=== PATIENT | female | born 1975 | race Caucasian/White ===

== ENCOUNTER 2018-11-30 12:28 | Emergency (ER) | payer BC, SELFPAY ==
[2018-11-30 13:06] VITALS: BP 160/90; RESP 18; TEMP 36.9; O2SAT 100
--- NOTE | 2018-11-30 13:26 | W.ED.GENAD ---
Discharge Plan Disposition Patient Disposition: HOME Condition: Stable Discharge Details Chief Complaint: RespSymp Clinical Impression: Sinusitis Reason For Visit: ? sinus infection Primary Care Provider: Nazanin Mitchell ED Provider: Lisandro Joseph Home Meds and New Rx's Prescriptions: New doxycycline hyclate 100 mg capsule 100 mg PO BID Qty: 14 RF: 0 Continued ibuprofen 200 mg Capsule RF: 0 levothyroxine 125 mcg Tablet 125 mcg PO DAILY RF: 0 Discharge Instructions Instructions: Sinusitis (ED) Additional Instructions: Continue to use vjgp-uzh-[id number] ibuprofen along with cold and sinus medication. You may delay start of your antibiotic for the next 24-48 hours to see if your symptoms improve with symptomatic bbkd-xdk-jnanszt treatment otherwise when she start the antibiotic you should take the medication until fully complete. Return emergency department as needed for any concerns or follow-up with your primary care provider for reassessment. Referrals: Primary Care Provider [Outside] (As needed for reassessment or if not improving) Discharge Data Discharge Date/Time-TO BE ENTERED AT DEPARTURE: 11/30/18 13:38 Medical Decision Making Patient presenting to the emergency department chief complaint of sinus pressure. Patient states typical URI symptoms for 1 week but significant increase in sinus pain and pressure over the last 24 hours. She states some associated dental pain and pain does change with position. Patient denies any febrile symptoms states dry cough. Physical exam is positive for ethmoid and maxillary sinus tenderness that is mild otherwise clear lung sounds and unremarkable remainder of H ENT exam. Patient is nontoxic in appearance. Given that patient is nearing the 10-day point of illness with worsening symptoms there is concern for this being possibly bacterial. Patient placed on doxycycline twice daily for 1 week but she was informed that she does not need to begin this immediately that she may await an additional 24 hours before starting the medication to see if she improves with just using alip-blz-jjnmctt ibuprofen. Patient denies any chance of and at this time states that she does not need to take a urine test as no chance of . Patient informed that doxycycline and a ibuprofen may be harmful to possible which she states clear understanding of that. Patient follow-up with primary care provider as needed. HPI General Mode of arrival: ambulatory. Date/Time Provider Initiated Documentation: 11/30/18 13:19. Limitations to Documentation: no limitations. Information obtained by: patient and RN notes reviewed. History of Present Illness 43 year old F presents to the emergency department with the chief complaint of sinus pressure, described as moderate, with intensity rated at 6. Quality is described as aching, and is localized to the face. Patient started experiencing this week(s) (1) and it has been constant. No relieving factors improve symptom(s), No exacerbating factors reported . Patient did receive the following treatments prior to arrival, none Related Data Home Medications Medication Instructions Recorded Confirmed doxycycline hyclate 100 mg PO BID #14 cap 11/30/18 ibuprofen 11/30/18 levothyroxine 125 mcg PO DAILY 11/30/18 11/30/18 Previous Rx's Medication Instructions Recorded doxycycline hyclate 100 mg PO BID #14 cap 11/30/18 Allergies Allergy/AdvReac Type Severity Reaction Status Date / Time ampicillin Allergy Unverified 11/30/18 13:11 sulfamethoxazole Allergy Unverified 11/30/18 13:11 [From ] trimethoprim [From ] Allergy Unverified 11/30/18 13:11 General Stated Complaint: RespSymp RAJ: 4 Review of Systems Constitutional Denies body ache(s), Denies chills, Denies fever(s), Reports headache(s) and Denies malaise Eyes Denies eye discharge ENT Reports as per HPI, Denies ear discharge, Denies otalgia, Reports headache(s), Reports nasal congestion, Reports nasal discharge, Denies neck pain, Reports sinus pain, Reports sinus pressure, Reports sore throat and Denies throat swelling Cardiovascular Denies chest pain and Denies dyspnea Respiratory Reports cough and Denies dyspnea Musculoskeletal Denies joint swelling and Denies neck pain Integumentary/Breasts Denies rash Neurologic Reports headache(s) Allergic/Immunologic Denies throat swelling [facility] Medical History Hypothyroid (Chronic) Social History Smoking and Tabacco status: Never Exam Const General: cooperative, comfortable and no acute distress Orientation: alert and awake [facility] Head: normal to inspection, normocephalic and atraumatic Ears: hearing grossly normal bilaterally and TM's normal bilaterally General nose exam: external nose normal Face and sinus: no erythema and sinus tenderness ethmoid and maxillary Mouth: oral mucosae normal, no drooling, no muffled voice and no trismus Throat: posterior oropharynx normal, tonsils normal and uvula midline Neck Neck: normal visual inspection, full ROM, no lymphadenopathy, no meningeal signs, trachea midline and supple Resp Effort & Inspection: normal respiratory effort, able to speak in complete sentences and cough Quality of cough: dry Auscultation: clear to auscultation bilaterally Cardio Rate: regular rate Rhythm: regular rhythm Heart Sounds: S1 normal, S2 normal, normal S1 and S2, no click, no gallops, no murmurs and no rubs Skin General skin exam: no rashes or lesions noted and dry skin (warm) Neuro General: alert, awake, oriented x3, gait normal and moves all extremities Cognition: normal cognition Speech: speech normal Course Vital Signs Temperature 36.9 C 11/30/18 13:06 Respiratory Rate 18 11/30/18 13:06 Blood Pressure 160/90 H 11/30/18 13:06 Pulse Oximetry 100 11/30/18 13:06 Temperature 36.9 C 11/30/18 13:06 Temperature Source Tympanic 11/30/18 13:06 Respiratory Rate 18 11/30/18 13:06 Respiratory Effort Non-Labored 11/30/18 13:15 Respiratory Depth Normal 11/30/18 13:15 Blood Pressure 160/90 H 11/30/18 13:06 Blood Pressure Position Sitting 11/30/18 13:06 Pulse Oximetry 100 11/30/18 13:06 Oxygen Delivery Method Room Air 11/30/18 13:06 Oxygen Flow Rate 0 11/30/18 13:06 Pain Level 6 11/30/18 13:06
--- NOTE | 2018-11-30 13:33 | ED.GENADUL_ITS ---
Discharge Plan Disposition Patient Disposition: HOME Condition: Stable Discharge Details Chief Complaint: RespSymp Clinical Impression: Sinusitis Reason For Visit: ? sinus infection Primary Care Provider: Nazanin Mitchell ED Provider: Lisandro Joseph Home Meds and New Rx's Prescriptions: New doxycycline hyclate 100 mg capsule 100 mg PO BID Qty: 14 RF: 0 Continued ibuprofen 200 mg Capsule RF: 0 levothyroxine 125 mcg Tablet 125 mcg PO DAILY RF: 0 Discharge Instructions Instructions: Sinusitis (ED) Additional Instructions: Continue to use ufjz-lec-rbzekwk ibuprofen along with cold and sinus medication. You may delay start of your antibiotic for the next 24-48 hours to see if your symptoms improve with symptomatic [id number]-[id number] treatment otherwise when she start the antibiotic you should take the medication until fully complete. Return emergency department as needed for any concerns or follow-up with your primary care provider for reassessment. Referrals: Primary Care Provider [Outside] (As needed for reassessment or if not improving) Discharge Data Discharge Date/Time-TO BE ENTERED AT DEPARTURE: 11/30/18 13:38 Medical Decision Making Patient presenting to the emergency department chief complaint of sinus pressure. Patient states typical URI symptoms for 1 week but significant increase in sinus pain and pressure over the last 24 hours. She states some associated dental pain and pain does change with position. Patient denies any febrile symptoms states dry cough. Physical exam is positive for ethmoid and maxillary sinus tenderness that is mild otherwise clear lung sounds and unremarkable remainder of H ENT exam. Patient is nontoxic in appearance. Given that patient is nearing the 10-day point of illness with worsening symptoms there is concern for this being possibly bacterial. Patient placed on doxycycline twice daily for 1 week but she was informed that she does not need to begin this immediately that she may await an additional 24 hours before start ing the medication to see if she improves with just using lreb-hbd-cnobygj ibuprofen. Patient denies any chance of and at this time states that she does not need to take a urine test as no chance of . Patient informed that doxycycline and a ibuprofen may be harmful to possible which she states clear understanding of that. Patient follow-up with primary care provider as needed. HPI General Mode of arrival: ambulatory . Date/Time Provider Initiated Documentation: 11/30/18 13:19 . Limitations to Documentation: no limitations . Information obtained by: patient and RN notes reviewed . History of Present Illness 43 year old F presents to the emergency department with the chief complaint of sinus pressure, described as moderate, with intensity rated at 6. Quality is described as aching, and is localized to the face. Patient started experiencing this week(s) (1) and it has been constant. No relieving factors improve symptom(s), No exacerbating factors reported . Patient did receive the following treatments prior to arrival, none Related Data Home Medications Medication Instructions Recorded Confirmed doxycycline hyclate 100 mg PO BID #14 cap 11/30/18 ibuprofen 11/30/18 levothyroxine 125 mcg PO DAILY 11/30/18 11/30/18 Previous Rx's Medication Instructions Recorded doxycycline hyclate 100 mg PO BID #14 cap 11/30/18 Allergies Allergy/AdvReac Type Severity Reaction Status Date / Time ampicillin Allergy Unverified 11/30/18 13:11 sulfamethoxazole Allergy Unverified 11/30/18 13:11 [From ] trimethoprim [From ] Allergy Unverified 11/30/18 13:11 General Stated Complaint: RespSymp RAJ: 4 Review of Systems Constitutional Denies body ache(s), Denies chills, Denies fever(s), Reports headache(s) and Denies malaise Eyes Denies eye discharge ENT Reports as per HPI, Denies ear discharge, Denies otalgia, Reports headache(s), Reports nasal congestion, Reports nasal discharge, Denies neck pain, Reports sinus pain, Reports sinus pressure, Reports sore throat and Denies throat swelling Cardiovascular Denies chest pain and Denies dyspnea Respiratory Reports cough and Denies dyspnea Musculoskeletal Denies joint swelling and Denies neck pain Integumentary/Breasts Denies rash Neurologic Reports headache(s) Allergic/Immunologic Denies throat swelling [facility] Medical History Hypothyroid (Chronic) Social History Smoking and Tabacco status: Never Exam Const General: cooperative, comfortable and no acute distress Orientation: alert and awake [facility] Head: normal to inspection, normocephalic and atraumatic Ears: hearing grossly normal bilaterally and TM's normal bilaterally General nose exam: external nose normal Face and sinus: no erythema and sinus tenderness ethmoid and maxillary Mouth: oral mucosae normal, no drooling, no muffled voice and no trismus Throat: posterior oropharynx normal, tonsils normal and uvula midline Neck Neck: normal visual inspection, full ROM, no lymphadenopathy, no meningeal signs, trachea midline and supple Resp Effort & Inspection: normal respiratory effort, able to speak in complete sentences and cough Quality of cough: dry Auscultation: clear to auscultation bilaterally Cardio Rate: regular rate Rhythm: regular rhythm Heart Sounds: S1 normal, S2 normal, normal S1 and S2, no click, no gallops, no murmurs and no rubs Skin General skin exam: no rashes or lesions noted and dry skin (warm) Neuro General: alert, awake, oriented x3, gait normal and moves all extremities Cognition: normal cognition Speech: speech normal Course Vital Signs Temperature 36.9 C 11/30/18 13:06 Respiratory Rate 18 11/30/18 13:06 Blood Pressure 160/90 H 11/30/18 13:06 Pulse Oximetry 100 11/30/18 13:06 Temperature 36.9 C 11/30/18 13:06 Temperature Source Tympanic 11/30/18 13:06 Respiratory Rate 18 11/30/18 13:06 Respiratory Effort Non-Labored 11/30/18 13:15 Respiratory Depth Normal 11/30/18 13:15 Blood Pressure 160/90 H 11/30/18 13:06 Blood Pressure Position Sitting 11/30/18 13:06 Pulse Oximetry 100 11/30/18 13:06 Oxygen Delivery Method Room Air 11/30/18 13:06 Oxygen Flow Rate 0 11/30/18 13:06 Pain Level 6 11/30/18 13:06
== END 2018-11-30 13:38 | disposition home or self-care (01) ==
PROVIDERS: Emergency Provider Nurse Practitioner Family; PCP Internal Medicine
DX: J01.90 Acute sinusitis, unspecified (principal)
CPT/HCPCS: 99282

== ENCOUNTER 2023-05-09 15:18 | Outpatient (REF) | payer BC, SELFPAY ==
[2023-05-09 21:48] LABS: BUN 12 mg/dL (7-18); CREATININE 0.9 mg/dL (0.55-1.02); Calcium 9.2 mg/dL (8.5-10.1); Chloride 101 mmol/L (98-107); Estimated GFR 79.35 (mL/min/1.73m2); Glucose 124 mg/dL (74-106); Sodium 136 mmol/L (136-145)
== END 2023-05-09 15:19 | disposition home or self-care (01) ==
LOC: NCHCN 15:18
PROVIDERS: PCP Internal Medicine; Visit Provider Family Medicine
DX: I10 Essential (primary) hypertension (principal)
CPT/HCPCS: 80048

== ENCOUNTER 2023-09-15 12:49 | Outpatient (REF) | payer BC, SELFPAY ==
--- NOTE | 2023-09-15 08:50 | SKI_PTH ---
PATIENT: Hue Wood LOC: [facility] U#:[id number] AGE/SX: 48/F ROOM: RE09/15/[address]: Lelo Saenz : 1975 BED: DIS: 09/15/2023 SPEC #: [id number] RECD: 09/15/23 18:01 STATUS: CHET SMITH #: [id number] TEDDY: 09/15/23 08:[address]: Lelo Saenz DEPT: Surgical Specimen RECD BY: Paz Rodriguez ENTERED: 09/15/23 18:02 SP TYPE: PORTER HURTADO DR: Nazanin Mitchell Tissues: 1 - SKIN BIOPSY(SHAVE/PUNCH) Procedures: SKIN LEVEL 4 Comments: [id number]
--- OUTSIDE RECORDS SUMMARY | 2023-09-15 12:52 | XMS_ITS | Continuity of Care Document ---
Author Name Unknown Organization [facility] Ambulatory Clinics Address [address] [place] [address] Care Team Providers Care Press Tender Long Goods Name Role Phone Unavailable, Physician Primary Care Physician Un available Encounter [facility] NBR [id number] Date(s): 01/24/23 - 01/24/23 [facility] Ambulatory Clinics [address] [place] [address]- [place] Discharge Disposition: Home Allergies, Adverse Reactions, Alerts Substance Reaction Severity Status ampicillin Hives Moderate Active Septra Hives Moderate Active Assessment and Plan Future Appointments Medications levothyroxine 125 mcg (0.125 mg) oral tablet 125 mcg = 1 tab, Oral, Daily, # 90 tab, 0 Refill(s) Start Date: 01/07/23 Status: Ordered Mirena 52 mg intrauteral device 52 mg 1 EA, Intrauteral, Once, 0 Refill(s) Start Date: 01/07/23 Status: Ordered Problem List Condition Confirmation Course Effective Dates Status Health St atus Informant Anxiety Confirmed Active HTN (hypertension) Confirmed Active Hypothyroid Confirmed Active IUD (intrauterine device) in place Confirmed Active Psoriasis Confirmed Active Procedures Procedure Date Related Diagnosis Body Site Status Breast reduction 12/2016 Complete d Social History Social History Type Response Smoking Status Smoking tobacco use: Never tobacco user;Never entered on: 01/07/23 Sex Patient Care team information Care Team Personnel Name: Unavailable, Physician Position: No Access Member Role: Primary Care Physician Care Team Related Persons Name: BESSY DIAZ Address: Home [address], [place] [id number] Address: [address], [place] [id number] Name: KAYLEE KIM Address: Home [address], [place] [id number] [facility]
--- OUTSIDE RECORDS SUMMARY | 2023-09-15 12:52 | XMS_ITS | Continuity of Care Document ---
Author Name Unknown Organization [facility] Ambulatory Clinics Address [address] [place] [address] Care Team Providers Care Heavy Equipment Operator/Paver Name Role Phone Unavailable, Physician Primary Care Physician Un available Encounter [facility] NBR [id number] Date(s): 01/09/23 - 01/09/23 [facility] Ambulatory Clinics [address] [place] [address] [place] Encounter Diagnosis Encounter for gynecological examination without abnormal finding(Discharge Diagnosis) - 01/09/23 IUD (intrauterine device) in place(Discharge Diagnosis) - 01/09/23 HTN (hypertension)(Discharge Diagnosis) - 01/09/23 Encounter for screening mammogram for malignant neoplasm of breast(Discharge Diagnosis) - 01/09/23 Hypothyroid(Discharge Diagnosis) - 01/09/23 Discharge Disposition: Home or Self Care Attending Physician: Danny Barrios Allergies, Adverse Reactions, Alerts Substance Reaction Severity Status ampicillin Hives Moderate Active Septra Hives Moderate Active Assessment and Plan Future Appointments Future Scheduled Tests Laboratory* CBC w/ Diff 01/09/23 * Comprehensive Metabolic Panel 01/09/23 * Lipid Panel 01/09/23 * TSH w/ Rflx to Free T4 01/09/23 Radiology* MG Mammo Screening Bilateral 01/24/23 Functional Status 01/09/23 Other exposure to Infectious Disease Non e Medications levothyroxine 125 mcg (0.125 mg) oral [...] Site Status Breast reduction 12/2016 Complete d Vital Signs Most recent to oldest [Reference Range]: 1 Blood Pressure [90-140/60-90 mmHg] 174/1 12mmHg *HI* (01/09/23 8:43 AM) Weight 66.7 kg (01/09/23 8:43 AM) Weight Measured (lbs) 147.048 lb (01/09/23 8:43 AM) [place] Body Weight Calculated 50.1 kg (01/09/23 8:43 AM) Height 157.48 cm (01/09/23 8:43 AM) Height/Length Measured (inches) 62 inch (01/09/23 8:43 AM) BSA Measured 1.71 m2 (01/09/23 8:43 AM) Body Mass Index 26.9 kg/m2 (01/09/23 8:43 AM) Social History Social History Type Response Smoking Status Smoking tobacco use: Never tobacco user;Never entered on: 01/07/23 Sex Physician Outpatient Note * Danny Barrios P: PERFORM Event Display: Office Clinic Note Physician Authored Date: [id number] GREGORY DIAZ :1975 Age:47 years Sex:Female Visit Date:01/09/2023 Primary Care Physician: Unavailable, Physician 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 ??She has a Mirena IUD that was??replaced on 01/01/2021.?? There have??not been any problems with bleeding, only occasional intermittent spotting. ??There are no problems with urination and bowel movements. ??She is concerned about her blood pressure. ??It has been elevated??at her appointments here??in the last 2 years. ??She??has not??found a primary care provider.?Her last Pap smear on 10/31/2020 was Cytology Negative and Negative for High Risk HPV DNA. ??Her last mammogram??on 12/27/2020??showed No??Mammographic Evidence of Malignancy, benign findings, BI-RADS Category 2. Review of Systems Constitutional: No fevers, chills, sweats, no weight loss, no weight gain Eye: No new visual problems Respiratory: No shortness of breath, cough Breasts: No new lumps, skin changes, nipple discharge Cardiovascular: No chest pain, palpitations, syncope Gastrointestinal: No nausea, vomiting, diarrhea Genitourinary: No blood in urine, no urinary urgency, frequency, leakage, no painful urination, no difficulty urinating Flight Crew Time Clerk: Intermittent light vaginal spotting. ??No??odor, discharge, no vulvar itching, pain, dryness, no pain with menses or intercourse, no pelvic pain Heme/Lymph: Negative for bruising tendency, swollen lymph glands Endocrine: Negative for cold intolerance, new unexpected hair growth Skin: No bruises, abrasions Psychiatric: No anxiety, depression Physical Exam Vitals & Measurements BP:??174/112?? HT:??157.48??cm?? WT:??66.7??kg?? BMI:??26.9?? BSA:??1.71?? General: Alert and oriented, well nourished, no acute distress Eye: Pupils equal, EOMI HEENT: Normocephalic, grossly normal hearing, moist oral mucosa, no scleral icterus Neck: Supple, no thyroid enlargement, no lymphadenopathy Lungs: Clear to auscultation, non-labored respiration Heart: Normal rate, regular rhythm, no murmurs Breasts: Symmetrical, no masses, no skin discoloration, no abnormal nipple discharge, no palpable lymphadenopathy Abdomen: Soft, non-tender, non-distended, normal bowel sounds, no masses Musculoskeletal: Grossly normal range of motion and strength, no tenderness or swelling Skin: Skin is warm, dry, no rashes Neurologic: Awake, alert, and oriented X4, CN II-XII grossly intact Psychiatric: Cooperative, appropriate mood and affect ?? Vulva: Normal external female genitalia, no masses, no atrophy, [place]???s and [place]???s glands normal Bladder: Urethra normal, no bladder prolapse Vagina: Normal pink rugated mucosa, normal vaginal discharge, adequate pelvic support Cervix: Normal appearance, no lesions or lacerations Uterus: Normal size, shape, non tender, mobile, no prolapse Adnexa: No masses or tenderness Perineum/Anus: No skin changes or hemorrhoids Assessment/Plan 1.??Encounter for gynecological examination without abnormal finding??Z01.419 ?? 2.??IUD (intrauterine device) in place??Z97.5 ?? 3.??HTN (hypertension)??I10 Ordered: CBC w/ Diff, Blood, Routine, 01/09/23, Once, Lab Collect, HTN (hypertension), Order for future visit Comprehensive Metabolic Panel, Blood, Routine, 01/09/23, Once, Lab Collect, HTN (hypertension), Order for future visit Lipid Panel, Blood, Routine, 01/09/23, Once, Lab Collect, HTN (hypertension), Order for future visit ?? 4.??Hypothyroid??E03.9 Ordered: TSH w/ Rflx to Free T4, Blood, Routine, 01/09/23, Once, Lab Collect, Hypothyroid, Order for future visit ?? 5.??Encounter for screening mammogram for malignant neoplasm of breast??Z12.31 Ordered: MG Mammo Screening Bilateral, 01/09/23, Routine, Reason: breast cancer screening, Transport Mode: Ambulatory, Encounter for screening mammogram for malignant neoplasm of breast ?? Today, at the time of your Well Woman visit, we discussed many different topics in hopes of helpingyou maintain your group home health. We discussed screening tests that are appropriate for you. Thesetests are ordered depending on your age, medical and gynecologic histories, and risk factors. In order for you to maintain your group home health, you'll also need to get routine exercise. Current datareflect that you can do 35 minutes of mild exercise 5 days per week or 25 minutes of vigorous exercise 5 days per week and maintain your group home health. I would also recommend that you make sure youare getting enough vitamin D. Most women in the [place] are low on vitamin D. I would recommend that you supplement daily with vitamin D, and that you take 1000 - 1500 Int Units daily.?We??discussed??Hypertension??evaluation, management,??and??need for establishing??care with a primary care provider.?? Initial lab testing was ordered. ??Our office??is assisting her in finding??a primary c are??provider??and establishing an??initial appointment. Future Orders CBC w/ Diff, Blood, Routine, 01/09/23, Once, Lab Collect, HTN (hypertension), Order for future visit Comprehensive Metabolic Panel, Blood, Routine, 01/09/23, Once, Lab Collect, HTN (hypertension), Order for future visit Lipid Panel, Blood, Routine, 01/09/23, Once, Lab Collect, HTN (hypertension), Order for future visit TSH w/ Rflx to Free T4, Blood, Routine, 01/09/23, Once, Lab Collect, Hypothyroid, Order for future visit MG Mammo Screening Bilateral, 01/09/23, Routine, Reason: breast cancer screening, Transport Mode: Ambulatory, Encounter for screening mammogram for malignant neoplasm of breast Problem List/Past Medical History Ongoing Anxiety HTN (hypertension) Hypothyroid IUD (intrauterine device) in place Psoriasis Historical Procedure/Surgical History ???Breast reduction (12/2016) Medications levothyroxine 125 mcg (0.125 mg) oral tablet, 125 mcg= 1 tab, Oral, Daily Mirena 52 mg intrauteral device, 52 mg= 1 EA, Intrauteral, Once Allergies Septra??(Hives) ampicillin??(Hives) Social History Alcohol Current, Wine, 3-5 times per week Electronic Cigarette/Vaping Electronic Cigarette Use: Never. 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 Home/Environment Lives with Significant other. Living situation: Home/Independent. Substance Use Never Tobacco Never tobacco user Tobacco Use:. Never Smokeless Tobacco use:. Family History Alive and well: Sister, Brother, Daughter, Daughter and Son. CVA - Cerebrovascular accident: Father. Cancer: Father. Diabetes mellitus: Father. Hypertension: Mother. Family Member(s): ?? MOTHER, at age: 71 Years. Cause of : Electronically Signed on 01/09/23 09:26 AM Danny Barrios Patient Care team information Care Team Personnel Name: Unavailable, Physician Position: No Access Member Role: Primary Care Physician Care Team Related Persons Name: BESSY DIAZ Address: [address] [id number] Address: Mailing [address] [place] [phone] Name: KAYLEE KIM Address: [address] [id number] [facility]
--- OUTSIDE RECORDS SUMMARY | 2023-09-15 12:52 | XMS_ITS | Continuity of Care Document ---
Author Name Unknown Organization [facility] Address [address] [place] [id number] Care Team Providers Care Functional Architect Name Role Phone MESSI LYNN, KASSIDY Ríos Primary Care Physician Encounter [facility] NBR [id number] Date(s): 09/09/23 - 09/09/[address] [id number] Encounter Diagnosis Colon cancer screening(Discharge Diagnosis) - 09/09/23 Encounter for screening for malignant neoplasm of colon(Final) - Other hemorrhoids(Final) - Discharge Disposition: Home f/u Internal Provider Attending Physician: Coy Lund MD Admitting Physician: Coy Lund MD Referring Physician: Coy Lund MD Allergies, Adverse Reactions, Alerts Substance Reaction Severity Status ampicillin Hives Moderate Active Septra Hives Moderate Active Assessment and Plan Future Appointments Functional Status 09/09/23 ADLs Independent 09/08/23 Living Situation Home independently Family Member Travel History No recent t ravel Recent Travel History No recent travel Other exposure to Infectious Disease Non e Medications levothyroxine 125 mcg (0.125 mg) oral tablet 125 mcg = 1 tab, Oral, Daily, # 30 tab, 11 Refill(s), Pharmacy: [id number] Start Date: 01/27/23 Status: Ordered losartan 25 mg oral tablet 25 mg = 1 tab, Oral, Daily, 0 Refill(s) Start Date: 07/23/23 Status: Ordered losartan 50 mg oral tablet 50 mg = 1 tab, Oral, Daily, 0 Refill(s) Start Date: 07/23/23 Status: Ordered Mirena 52 mg intrauteral device 52 mg 1 EA, Intrauteral, Once, 0 Refill(s) Start Date: 01/07/23 Status: Ordered Problem List Condition Confirmation Course Effective Dates Status Health St atus Informant Anxiety Confirmed Active HTN (hypertension) Confirmed Active Hypothyroid Confirmed Active IUD (intrauterine device) in place Confirmed Active Psoriasis Confirmed Active Procedures Procedure Date Related Diagnosis Body Site Status Colonoscopy Biopsy 1 09/09/23 Comp leted Breast reduction 12/2016 Complete d 1auto-populated from documented surgical case Vital Signs Most recent to oldest [Reference Range]: 1 2 3 Temperature Temporal Artery [36-38 Deg C] 36.1 Deg C (09/09/23 2:39 PM) 36.3 Deg C (09/09/23 2:21 PM) 37.5 Deg C (09/09/23 12:17 PM) Temperature Temporal Artery (DegF) [97.3-100 Deg F] 96.98 Deg F *LOW* (09/09/23 2:39 PM) 97.34 Deg F (09/09/23 2:21 PM) Peripheral Pulse Rate [60-100 bpm] 88 bpm (09/09/23 2:39 PM) 93 bpm (09/09/23 2:21 PM) 101 bpm *HI* (09/09/23 12:17 PM) Respiratory Rate [12-24 br/min] 16 br/min (09/09/23 2:39 PM) 15 br/min (09/09/23 2:21 PM) 16 br/min (09/09/23 12:17 PM) Blood Pressure [90-140/60-90 mmHg] 141/85mmHg *HI* (09/09/23 2:39 PM) 130/82mmHg (09/09/23 2:21 PM) 174/107mmHg *HI* (09/09/23 12:17 PM) Mean Arterial Pressure, Cuff [70-110 mmHg] 104 mmHg (09/09/23 2:39 PM) 98 mmHg (09/09/23 2:21 PM) Mean Arterial Pressure Cuff 103 mmHg (09/09/23 2:39 PM) 93 mmHg (09/09/23 2:21 PM) Blood Pressure Location Left arm (09/09/23 2:39 PM) Left arm (09/09/23 2:21 PM) Blood Pressure Method Automatic (09/09/23 2:39 PM) Automatic (09/09/23 2:21 PM) Weight 65.77 kg (09/08/23 8:25 AM) Weight Dosing 65.770 kg (09/08/23 8:25 AM) Height 157.48 cm (09/08/23 9:13 AM) 157.48 cm (09/08/23 8:25 AM) Social History Social History Type Response Smoking Status Smoking tobacco use: Never tobacco user;Never entered on: 01/07/23 Sex Hospital Discharge Instructions Patient Education 09/09/2023 13:21:06 Colonoscopy, Adult, Care After Colonoscopy, Adult, Care After The following information offers guidance on how to care for yourself after your procedure. Your health care provider may also give you more specific instructions. If you have problems or questions, contact your health care provider. What can I expect after the procedure? After the procedure, it is common to have: ??? A small amount of blood in your stool for 24 hours after the procedure. ??? Some gas. ??? Mild cramping or bloating of your abdomen. Follow these instructions at home: Eating and drinking ??? Drink enough fluid to keep your urine pale yellow. ??? Follow instructions from your health care provider about eating or drinking restrictions. ??? Resume your normal diet as told by your health care provider. Avoid heavy or fried foods that are hard to digest. Activity ??? Rest as told by your health care provider. ??? Avoid sitting for a long time without moving. Get up to take short walks every 1???2 hours. This is important to improve blood flow and breathing. Ask for help if you feel weak or unsteady. ??? Return to your normal activities as told by your health care provider. Ask your health care provider what activities are safe for you. Managing cramping and bloating ??? Try walking around when you have cramps or feel bloated. ??? If directed, apply heat to your abdomen as told by your health care provider. Use the heat source that your health care provider recommends, such as a moist heat pack or a heating pad. ??? Place a towel between your skin and the heat source. ??? Leave the heat on for 20???30 minutes. ??? Remove the heat if your skin turns bright red. This is especially important if you are unable to feel pain, heat, or cold. You have a greater risk of getting burned. General instructions ??? If you were given a sedative during the procedure, it can affect you for several hours. Do not drive or operate machinery until your health care provider says that it is safe. ??? For the first 24 hours after the procedure: ??? Do not sign important documents. ??? Do not drink alcohol. ??? Do your regular daily activities at a slower pace than normal. ??? Eat soft foods that are easy to digest. ??? Take rmzx-sgz-sksffsx and prescription medicines only as told by your health care provider. ??? Keep all follow-up visits. This is important. Contact a health care provider if: ??? You have blood in your stool 2???3 days after the procedure. Get help right away if: ??? You have more than a small spotting of blood in your stool. ??? You have large blood clots in your stool. ??? You have swelling of your abdomen. ??? You have nausea or vomiting. ??? You have a fever. ??? You have increasing pain in your abdomen that is not relieved with medicine. These symptoms may be an emergency. Get help right away. Call 911. ??? Do not wait to see if the symptoms will go away. ??? Do not drive yourself to the hospital. Summary ??? After the procedure, it is common to have a small amount of blood in your stool. You may also have mild cramping and bloating of your abdomen. ??? If you were given a sedative during the procedure, it can affect you for several hours. Do not drive or operate machinery until your health care provider says that it is safe. ??? Get help right away if you have a lot of blood in your stool, nausea or vomiting, a fever, or increased pain in your abdomen. This information is not intended to replace advice given to you by your health care provider. Make sure you discuss any questions you have with your health care provider. Document Revised: 06/05/2022 Document Reviewed: 06/05/2022 Elsevier Patient Education ?? 2022 [employer] Discharge instructions * Nury Newsome: PERFORM Event Display: Discharge Instructions Authored Date: [id number] GREGORY WOOD :1975 Age:48 years Sex:Female Visit Date:09/09/2023 Primary Care Physician: KASSIDY SWESNON MD Hospital Discharge Instructions We would like to thank you for allowing us to assist you with your healthcare needs. The following includes patient education materials and information regarding your injury/illness. Your Next Steps Discharge Orders Discharge Patient Instructions, You may experience some gas cramps and abdominal bloating Discharge Patient Instructions, Cramping and abdominal bloating should subside in 1 hour or so Discharge Patient Instructions, Passing gas rectally and belching is normal Discharge Patient Instructions, A light first meal may feel better in your stomach Discharge Patient Instructions, You may resume your normal activity in 24 hours Discharge Patient Instructions, It is important that a responsible adult drive you home today Discharge Patient Instructions, Do not sign any contracts, make any major decisions, or drive or operate machinery for 24 hours Discharge Patient Instructions, You should not be responsible for the care of others Discharge Patient Instructions, Avoid alcohol, tranquilizers, sleeping pills, or cold medicines for24 hours Discharge Patient Instructions, Call or come to emergency department if having unusual pain or severe abdominal pain Discharge Patient Instructions, Call or come to emergency department if vomiting blood or having black bowel movements, rectal bleeding or passing blood clots Discharge Patient Instructions, Call or come to emergency department for dizziness Discharge Patient Instructions, Call or come to emergency department chest pain, or shortness of breath Discharge Patient Instructions, Call or come to emergency department for fever greater than 100 ??F Discharge Patient Instructions, Call with any additional questions or concerns Scheduled Future Appointments Friday 9:00 AM EDT ?? With: Danny Barrios MD Where: [facility] Women's Health Status: Confirmed Medications What How Much When Why Instructions Next Dose Unchanged levonorgestrel (Mirena 52 mg intrauteral device) 1 Each Intrauteral Once Unchanged levothyroxine (levothyroxine 125 mcg (0.125 mg) oral tablet) 1 tab Oral (given by mouth) Every day Hypothyroidism Unchanged losartan (losartan 25 mg oral tablet) 1 tab Oral (given by mouth) Every day Unchanged losartan (losartan 50 mg oral tablet) 1 tab Oral (given by mouth) Every day Your Summary Your Care Team Admitting Physician - Coy Lund MD Attending Physician - Coy Lund MD Primary Care Physician - MESSI MD, KASSIDY P Referring Physician - Coy Lund MD Your Diagnosis Colon cancer screening Problems Ongoing - Any problem that you are currently receiving treatment for. Anxiety HTN (hypertension) Hypothyroid IUD (intrauterine device) in place Psoriasis Historical - Any problem that you are no longer receiving treatment for. Procedures Performed ???Colonoscopy Biopsy (09/09/2023) Discharge Vitals Temperature??(Temporal Artery) 97.3 ??F (36.3 ??C) Heart Rate??(Peripheral) 93 Respiratory Rate?? 15 Blood Pressure?? 130/82?? Allergies Septra??(Hives) ampicillin??(Hives) Education Materials Colonoscopy, Adult, Care After The following information offers guidance on how to care for yourself after your procedure. Your health care provider may also give you more specific instructions. If you have problems or questions, contact your health care provider. What can I expect after the procedure? After the procedure, it is common to have: ? A small amount of blood in your stool for 24 hours after the procedure. ? Some gas. ? Mild cramping or bloating of your abdomen. Follow these instructions at home: Eating and drinking ? Drink enough fluid to keep your urine pale yellow. ? Follow instructions from your health care provider about eating or drinking restrictions. ? Resume your normal diet as told by your health care provider. Avoid heavy or fried foods that are hard to digest. Activity ? Rest as told by your health care provider. ? Avoid sitting for a long time without moving. Get up to take short walks every 1???2 hours. This isimportant to improve blood flow and breathing. Ask for help if you feel weak or unsteady. ? Return to your normal activities as told by your health care provider. Ask your health care provider what activities are safe for you. Managing cramping and bloating ? Try walking around when you have cramps or feel bloated. ? If directed, apply heat to your abdomen as told by your health care provider. Use the heat source that your health care provider recommends, such as a moist heat pack or a heating pad. ? Place a towel between your skin and the heat source. ? Leave the heat on for 20???30 minutes. ? Remove the heat if your skin turns bright red. This is especially important if you are unable to feel pain, heat, or cold. You have a greater risk of getting burned. General instructions ? If you were given a sedative during the procedure, it can affect you for several hours. Do not drive or operate machinery until your health care provider says that it is safe. ? For the first 24 hours after the procedure: ? Do not sign important documents. ? Do not drink alcohol. ? Do your regular daily activities at a slower pace than normal. ? Eat soft foods that are easy to digest. ? Take aauu-gjo-zdojggc and prescription medicines only as told by your health care provider. ? Keep all follow-up visits. This is important. Contact a health care provider if: ? You have blood in your stool 2???3 days after the procedure. Get help right away if: ? You have more than a small spotting of blood in your stool. ? You have large blood clots in your stool. ? You have swelling of your abdomen. ? You have nausea or vomiting. ? You have a fever. ? You have increasing pain in your abdomen that is not relieved with medicine. These symptoms may be an emergency. Get help right away. Call 911. ? Do not wait to see if the symptoms will go away. ? Do not drive yourself to the hospital. Summary ? After the procedure, it is common to have a small amount of blood in your stool. You may also have mild cramping and bloating of your abdomen. ? If you were given a sedative during the procedure, it can affect you for several hours. Do not drive or operate machinery until your health care provider says that it is safe. ? Get help right away if you have a lot of blood in your stool, nausea or vomiting, a fever, or increased pain in your abdomen. This information is not intended to replace advice given to you by your health care provider. Make sure you discuss any questions you have with your health care provider. Document Revised: 06/05/2022 Document Reviewed: 06/05/2022 Elsevier Patient Education ?? 2022 [employer] Patient/Search Planner Signature Patient Name:GREGORY WOOD I have received this information and my questions have been answered. Patient/Search Planner Name: Patient/Search Planner Signature: Relationship to Patient: Witness Name/Signature: Date: Electronically Signed on: 09/09/2023 14:33 ESTSigned by:PG History and physical note * Event Display: History and Physical Update * Coy Lund MD: PERFORM Event Display: History and Physical Authored Date: [id number] GREGORY WOOD :1975 Age:48 years Sex:Female Visit Date:09/09/2023 Primary Care Physician: MESSI LYNN, KASSIDY Ríos History of Present Illness Gregory Wood is a 48-year-old woman who presents for planned??initial screening colonoscopy. ??Gregory has had no significant changes in her health since evaluated last in clinic on 07/23/2023. ??She??completed her bowel prep as instructed. Review of Systems Limited review of systems was completed. ??Notable findings are documented above. Physical Exam Vitals & Measurements T:??37.5?C ??(Temporal Artery)?? HR:??101??(Peripheral)?? RR:??16?? BP:??174/107?? SpO2:??100%?? General: No acute distress, pleasant, conversant CV: RRR Pulmonary: Regular breathing rate and effort Assessment/Plan 1.??Colon cancer screening??Z12.11 Gregory Wood is a 48-year-old woman at average risk for colon cancer who presents for planned??initial screening colonoscopy. ??After discussion of the risks, benefits, and alternatives to this procedure, informed consent was obtained. ??She is ready to proceed as planned. 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, First Dose: 09/09/23 12:13:00 EST, Routine Sodium Chloride 0.9% 1,000 mL, Total Volume (mL): 1,000, 1,000 mL, Soln-IV, IV, 50 mL/hr, Start Date: 09/09/23 12:13:00 EST, 65.77 kg, Populate Charting Weight From Order, 1.7, m2 Diet Order, 09/09/23 14:18:00 EST, Regular Discharge Patient, 09/09/23 14:18:00 EST, Discharge when stable per anesthesia criteria Discharge Patient, 09/09/23 14:18:00 EST, Discharge when stable per SDS criteria Discharge Patient Instructions, You may resume your normal activity in 24 hours Discharge Patient Instructions, Call or come to emergency department if vomiting blood or having black bowel movements, rectal bleeding or passing blood clots Discharge Patient Instructions, A light first meal may feel better in your stomach Discharge Patient Instructions, Call with any additional questions or concerns Discharge Patient Instructions, Passing gas rectally and belching is normal Discharge Patient Instructions, Call or come to emergency department for fever greater than 100 ??F Discharge Patient Instructions, Cramping and abdominal bloating should subside in 1 hour or so Discharge Patient Instructions, Call or come to emergency department chest pain, or shortness of breath Discharge Patient Instructions, You may experience some gas cramps and abdominal bloating Discharge Patient Instructions, Call or come to emergency department for dizziness Discharge Patient Instructions, It is important that a responsible adult drive you home today Discharge Patient Instructions, Call or come to emergency department if having unusual pain or severe abdominal pain Discharge Patient Instructions, Avoid alcohol, tranquilizers, sleeping pills, or cold medicines for24 hours Discharge Patient Instructions, You should not be responsible for the care of others Discharge Patient Instructions, Do not sign any contracts, make any major decisions, or drive or operate machinery for 24 hours Hold Medication Dose, 09/09/23 12:13:00 EST, Hold medications prior to procedure Obtain consent, 09/09/23 12:13:00 EST, Constant Order, 09/09/23 12:13:00 EST Peripheral IV Insertion, 09/09/23 12:13:00 EST Sequential Compression Devices (SCD's), 09/09/23 12:13:00 EST, Constant Order, Knee high sequentials, 09/09/23 12:13:00 EST Vital Signs, 09/09/23 14:18:00 EST, Stop date 09/09/23 14:18:00 EST, As needed Vital Signs, 09/09/23 14:18:00 EST, Once, Stop date 09/09/23 14:18:00 EST Vital Signs, 09/09/23 12:13:00 EST, Stop date 09/09/23 12:13:00 EST, Routine Problem List/Past Medical History Ongoing Anxiety HTN (hypertension) Hypothyroid IUD (intrauterine device) in place Psoriasis Historical Procedure/Surgical History ???Colonoscopy Biopsy (09/09/2023)???Breast reduction (12/2016) Medications Inpatient Normal Saline Flush, 10 mL, IV Flush, As Directed, PRN Sodium Chloride 0.9% 1,000 mL, 1000 mL, IV Home levothyroxine 125 mcg (0.125 mg) oral tablet, 125 mcg= 1 tab, Oral, Daily, 11 refills losartan 25 mg oral tablet, 25 mg= 1 tab, Oral, Daily losartan 50 mg oral tablet, 50 mg= 1 tab, Oral, Daily Mirena 52 mg intrauteral device, 52 mg= 1 EA, Intrauteral, Once Allergies Septra??(Hives) ampicillin??(Hives) Social History Alcohol Current, Wine, Daily Electronic Cigarette/Vaping Electronic Cigarette Use: Never. 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 Home/Environment Lives with Significant other. Living situation: Home/Independent. Substance Use Never Tobacco Never tobacco user Tobacco Use:. Never Smokeless Tobacco use:. Family History Alive and well: Sister, Brother, Daughter, Daughter and Son. CVA - Cerebrovascular accident: Father. Cancer: Father. Diabetes mellitus: Father. Hypertension: Mother. Family Member(s): ?? MOTHER, at age: 71 Years. Cause of : Electronically Signed on 09/09/23 02:22 PM Coy Lund MD Patient Care team information Care Team Personnel Name: MESSI LYNN, KASSIDY Ríos Position: No Access Member Role: Primary Care Physician Address: Address: [address] [place] [address] [place] [id number] Care Team Related Persons Name: BESSY WOOD Address: [address] [place], [place] [id number] Address: [address] [place], [place] [id number] Name: KAYLEE KIM Address: Home [address] [place], [place] [id number] [facility]
--- OUTSIDE RECORDS SUMMARY | 2023-09-15 12:52 | XMS_ITS | Continuity of Care Document ---
Author Name Unknown Organization [facility] Address [address] [place] [address] Care Team Providers Care Reheater Name Role Phone Unavailable, Physician Primary Care Physician Un available Encounter [facility] NBR [id number] Date(s): 01/22/23 - 01/22/23 [facility] [address] [place] [address]- [place] Discharge Disposition: Home Allergies, Adverse Reactions, Alerts Substance Reaction Severity Status ampicillin Hives Moderate Active Septra Hives Moderate Active Assessment and Plan Future Appointments Future Scheduled Tests Laboratory* CBC w/ Diff 01/09/23 * Comprehensive Metabolic Panel 01/09/23 * Lipid Panel 01/09/23 * TSH w/ Rflx to Free T4 01/09/23 Radiology* MG Mammo Screening Bilateral 01/24/23 Medications levothyroxine 125 mcg (0.125 mg) oral [...] Persons Name: BESSY DIAZ Address: [address] [place], [place] [id number] Address: [address] [place], [place] [id number] Name: KAYLEE KIM Address: [address] [id number] [facility]
--- OUTSIDE RECORDS SUMMARY | 2023-09-15 12:52 | XMS_ITS | Continuity of Care Document ---
Author Name Unknown Organization [facility] Address [address] [place] [address] Care Team Providers Care Medical Billing Clerk Name Role Phone Unavailable, Physician Primary Care Physician Un available Encounter [facility] NBR [id number] Date(s): 01/27/23 - 01/27/23 [facility] [address] [place] [address] [place] Discharge Disposition: Home Allergies, Adverse Reactions, Alerts Substance Reaction Severity Status ampicillin Hives Moderate Active Septra Hives Moderate Active Assessment and Plan Future Appointments Medications levothyroxine 125 mcg (0.125 mg) oral tablet 125 mcg = 1 tab, Oral, Daily, # 30 tab, 11 Refill(s), Pharmacy: [facility] Start Date: 01/27/23 Status: Ordered levothyroxine 125 mcg (0.125 mg) oral tablet [...] Persons Name: BESSY DIAZ Address: Home [address] [place], [place] [id number] Address: [address] [place], [place] [id number] Name: JULIO KAYLEE Address: [address] [id number] [facility]
--- OUTSIDE RECORDS SUMMARY | 2023-09-15 12:52 | XMS_ITS | Continuity of Care Document ---
Author Name Unknown Organization [facility] Ambulatory Clinics Address [address] [place] [address] Care Team Providers Care Processing Tech Name Role Phone LELO SAENZ MD Primary Care Physician [phone] Encounter [facility] NBR [id number] Date(s): 07/23/23 - 07/23/23 [facility] Ambulatory Clinics [address] [place] [address] [place] Encounter Diagnosis Colon cancer screening(Discharge Diagnosis) - 07/23/23 Discharge Disposition: Home or Self Care Attending Physician: Coy Lund MD Allergies, Adverse Reactions, Alerts Substance Reaction Severity Status ampicillin Hives Moderate Active Septra Hives Moderate Active Assessment and Plan Future Appointments Functional Status 07/23/23 Living Environment Home Environment No qualifying data available Recent Travel History No recent travel Other exposure to Infectious Disease Non e Medications levothyroxine 125 mcg (0.125 mg) oral tablet 125 mcg = 1 tab, Oral, Daily, # 30 tab, 11 Refill(s), Pharmacy: [id number] Start Date: 01/27/23 Status: Ordered losartan 25 mg oral tablet 25 mg = 1 tab, Oral, Daily, # 30 tab, 0 Refill(s) Start Date: 07/23/23 Status: Ordered losartan 50 mg oral tablet 50 mg = 1 tab, Oral, Daily, # 30 tab, 0 Refill(s) Start Date: 07/23/23 Status: Ordered [...] Most recent to oldest [Reference Range]: 1 Temperature Temporal Artery [36-38 Deg C ] 36.4 Deg C (07/23/23 9:37 AM) Apical Heart Rate [60-100 bpm] 87 bpm (07/23/23 9:37 AM) Blood Pressure [90-140/60-90 mmHg] 152/1 00mmHg *HI* (07/23/23 9:37 AM) Weight 66.9 kg (07/23/23 9:37 AM) Weight Measured (lbs) 147.489 lb (07/23/23 9:37 AM) [place] Body Weight Calculated 49.665 kg (07/23/23 9:37 AM) Height 157 cm (07/23/23 9:37 AM) Height/Length Measured (inches) 61.81 in ch (07/23/23 9:37 AM) BSA Measured 1.71 m2 (07/23/23 9:37 AM) Body Mass Index 27.14 kg/m2 (07/23/23 9:37 AM) Social History Social History Type Response Smoking Status Smoking tobacco use: Never tobacco user;Never entered on: 01/07/23 Sex Physician Outpatient Note * Coy Lund MD: PERFORM Event Display: Office Clinic Note Physician Authored Date: [id number] HUE WOOD :1975 Age:48 years Sex:Female Visit Date:07/23/2023 Primary Care Physician: LELO SAENZ MD Chief Complaint Colon cancer screening History of Present Illness Hue Wood is a 48-year-old woman referred by Lelo Saenz MD for colon cancer screening. ??He has had no prior colonoscopies.?Hue reports that she has had no significant changes in her bowel habits.?? She denies constipation, melena, hematochezia, abdominal pain, fevers, chills, night sweats, orunintentional weight loss. ??She has no personal or family history of inflammatory bowel disease orGI malignancies.?? She recently started??losartan for hypertension. ??She denies other significant changes in her health.?? Her only prior surgery was a breast reduction. ??She had no complications related to anesthesia or bleeding. Review of Systems ??review of systems was completed. ??Notable findings are documented above.A 10 point Physical Exam Vitals & Measurements T:??36.4?C ??(Temporal Artery)?? HR:??87??(Apical)?? BP:??152/100?? SpO2:??97%?? HT:??157??cm?? WT:??66.9??kg?? BMI:??27.14?? BSA:??1.71?? General: No acute distress, pleasant, conversant CV: RRR Pulmonary: Regular breathing rate and effort Abdomen: Nontender Extremities: No edema Neuro: Grossly intact Assessment/Plan 1.??Colon cancer screening??Z12.11 Hue Wood is a 48-year-old woman at average risk for colon cancer referred for colon cancer screening. ??The role of colonoscopy in the prevention and detection of colon cancer was reviewed.?? Recommend screening colonoscopy. ??The risks, benefits, and alternatives to this procedure were discussed in detail. ??The need for bowel prep was outlined. ??Mana demonstrated good understanding and agreement. ??She would like to schedule colonoscopy for the next mutually convenient date. ??Thank you forthe opportunity to participate in the care of Hue. ??A copy of this consultation will be faxed to??Lelo Saenz MD. Problem List/Past Medical History Ongoing Anxiety HTN [...] Use: Never. 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 Home/Environment Lives with Significant other. Living situation: Home/Independent. Substance Use Never Tobacco Never tobacco user Tobacco Use:. Never Smokeless Tobacco use:. Family History Alive and well: Sister, Brother, Daughter, Daughter and Son. CVA - Cerebrovascular accident: Father. Cancer: Father. Diabetes mellitus: Father. Hypertension: Mother. Family Member(s): ?? MOTHER, at age: 71 Years. Cause of : Electronically Signed on 07/23/23 10:05 AM Coy Lund MD Patient Care team information Care Team Personnel Name: MESSI LYNN, LELO Ríos Position: No Access Member Role: Primary Care Physician Address: Address: [address] [place] [id number]- Care Team Related Persons Name: BESSY WOOD Address: [address] [id number] Address: Mailing [address] [place] [place] [phone] Name: KAYLEE KIM Address: Home [address] [place] [phone] [facility]
--- OUTSIDE RECORDS SUMMARY | 2023-09-15 12:52 | XMS_ITS | Continuity of Care Document ---
Author Name Unknown Organization [facility] Ambulatory Clinics Address [address] [place] [address] Care Team Providers Care Neurology Physician Name Role Phone Unavailable, Physician Primary Care Physician Un available Encounter [facility] NBR [id number] Date(s): 01/27/23 - 01/27/[address] [facility] Ambulatory Clinics [address] [place] [address]- [place] Discharge Disposition: Home Allergies, Adverse Reactions, Alerts Substance Reaction Severity Status ampicillin Hives Moderate Active Septra Hives Moderate Active Assessment and Plan Future Appointments Medications levothyroxine 125 mcg (0.125 mg) oral tablet 125 mcg = 1 tab, Oral, Daily, # 30 tab, 11 Refill(s), Pharmacy: [id number] Start Date: 01/27/23 Status: Ordered levothyroxine [...] Persons Name: BESSY DIAZ Address: Home [address] [place], [place] [id number] Address: [address], [place] [phone] Name: JULIOEBKAYLEE Address: [address] [phone] [facility]
--- OUTSIDE RECORDS SUMMARY | 2023-09-15 12:53 | XMS_ITS | Continuity of Care Document ---
Author Name Unknown Organization [facility] Address [address] [place] [id number] Care Team Providers Care Flight Technician Name Role Phone Unavailable, Physician Primary Care Physician Un available Encounter [facility] NBR [id number] Date(s): 01/24/23 - 01/24/[address] [address]- [place] Discharge Disposition: Home or Self Care Attending Physician: Danny Barrios Admitting Physician: Danny Barrios Referring Physician: Danny Barrios Allergies, Adverse Reactions, Alerts [...] Site Status Breast reduction 12/2016 Complete d Results Laboratory List Name Date .Morphology (LTTL) 01/24/23 Automated Diff 01/24/23 CBC w/ Diff 01/24/23 Comprehensive Metabolic Panel 01/24/23 Lipid Panel 01/24/23 TSH w/ Rflx to Free T4 01/24/23 Most recent to oldest [Reference Range]: 1 WBC [4.8-10.8 K/mcL] 5.8 K/mcL (01/24/23 9:01 AM) RBC [4.20-5.40 Million/mcL] 4.43 Million /mcL (01/24/23 9:01 AM) Neutro Auto [42.2-75.2 %] 64.4 % (01/24/23 9: AM) Lymph Auto [20.5-51.1 %] 20.3 % *LOW* (01/24/23 9: AM) [place] Auto [1.7-9.3 %] 10.3 % *HI* (01/24/23 9: AM) Basophil Auto [0.0-0.8 %] 1.5 % *HI* (01/24/23 9:01 AM) BUN [8-26 mg/dL] 10 mg/dL (01/24/23 9: AM) Cholesterol Total [129-209 mg/dL] 189 mg /dL (01/24/23: AM) LDL 85.2 *NA* (01/24/23: AM) Glucose Level [74-106 mg/dL] 86 mg/dL (01/24/23: AM) Potassium Level [3.5-5.1 mmol/L] 4.2 mmo l/L (01/24/23 9:01 AM) Baso Absolute [0.0-0.2 K/mcL] 0.1 K/mcL (01/24/23 9:01 AM) MCV [81.0-99.0 fL] 104.5 fL *HI* (01/24/23 9:01 AM) RBC Morph [Normal] Abnormal *ABN* (01/24/23 9: AM) HDL [40-80 mg/dL] 99 mg/dL *HI* (01/24/23 9:01 AM) AST [15-41 IntlUnit/L] 23 IntlUnit/L (01/24/23 9:01 AM) ALT [14-54 IntlUnit/L] 22 IntlUnit/L (01/24/23 9:01 AM) MCHC [32.0-36.0 g/dL] 33.5 g/dL (01/24/23 9:01 AM) Osmolality [275-295 mOsm/kg] 270 mOsm/kg *LOW* (01/24/23 9: AM) Sodium Level [134-143 mmol/L] 136 mmol/L (01/24/23 9:01 AM) Chol/HDL 1.9 *NA* (01/24/23 9:01 AM) Lymph Absolute [1.2-3.4 K/mcL] 1.2 K/mcL (01/24/23 9:01 AM) Hct [37.0-47.0 %] 46.3 % (01/24/23 9:01 AM) Triglycerides [10-150 mg/dL] 26 mg/dL (01/24/23 9: AM) Calcium Level [8.9-10.3 mg/dL] 9.5 mg/dL (01/24/23 9:01 AM) [place] Absolute [0.1-0.6 K/mcL] 0.6 K/mcL (01/24/23: AM) Albumin Level [3.5-5.0 g/dL] 4.7 g/dL (01/24/23 9:01 AM) Protein Total [6.5-8.1 g/dL] 7.7 g/dL (01/24/23 9: AM) MCH [27.0-31.0 pg] 35.0 pg *HI* (01/24/23 9:01 AM) Neutro Absolute [1.4-6.5 K/mcL] 3.8 K/mc L (01/24/23 9: AM) Bilirubin Total [0.2-1.2 mg/dL] 1.1 mg/d L (01/24/23 9:01 AM) Hgb [12.0-16.0 g/dL] 15.5 g/dL (01/24/23 9:01 AM) Alk Phos [38-130 IntlUnit/L] 36 IntlUnit /L *LOW* (01/24/23 9:01 AM) MPV [7.4-10.4 fL] 9.8 fL (01/24/23 9:01 AM) Platelets [130-400 K/mcL] 330 K/mcL (01/24/23 9:01 AM) CO2 [22-32 mmol/L] 28 mmol/L (01/24/23 9:01 AM) Eos Absolute [0.0-0.2 K/mcL] 0.2 K/mcL (01/24/23 9:01 AM) TSH [0.45-5.33 mIntlUnit/mL] 2.06 mIntlU nit/mL (01/24/23 9:01 AM) Macrocyte 2+ *ABN* (01/24/23 9:01 AM) Chloride Level [98-111 mmol/L] 101 mmol/ L (01/24/23 9:01 AM) RDW-CV [11.5-14.5 %] 12.6 % (01/24/23 9:01 AM) A/G Ratio 1.6 *NA* (01/24/23 9:01 AM) BUN/Creat Ratio [8.0-20.0] 15.6 (01/24/23 9:01 AM) Globulin 3.0 *NA* (01/24/23 9:01 AM) Imm Gran Absolute 0.02 *NA* (01/24/23 9:01 AM) Imm Gran Auto [0.0-0.5 %] 0.3 % (01/24/23 9:01 AM) Creatinine Level [0.44-1.00 mg/dL] 0.64 mg/dL (01/24/23 9:01 AM) Plt Estimation Normal (01/24/23 9:01 AM) Anion Gap [3.0-12.0] 7.0 (01/24/23 9:01 AM) Eos, Auto [0.00-3.00 %] 3.20 % *HI* (01/24/23 9:01 AM) eGFR CKD-EPI [>=60 mL/min/1.73 m2] 110 m L/min/1.73 m2 (01/24/23 9:01 AM) Radiology Reports * Exam Date Time Procedure Performing Provider Status 01/24/23 8:55 AM MG Mammo Screening Bilateral [place], A nna; Auth (Verified) Notes: (MG Mammo Screening Bilateral) Reason For Exam: breast cancer screening MG Mammo Screening Bilateral EXAM DESCRIPTION: MG Mammo Screening Bilateral 01/24/2023 INDICATION: BREAST CANCER SCREENING COMPARISON: Prior studies most recently dated 12/27/2020 and 12/09/2018 BREAST DENSITY: The breasts are heterogeneously dense which may obscure small masses. FINDINGS: MLO and CC views were performed with digital breast tomosynthesis. Images were reviewed using computer aided detection. No asymmetry, architectural distortion or suspicious grouping of calcifications to suggest malignancy in either breast. Stable mild areas of scarring bilaterally consistent with history of prior breast reduction surgery. ASSESSMENT: No mammographic evidence of malignancy. Benign findings. BI-RADS category 2. RECOMMENDATION: Screening mammography in 1 year JOB #: [id number] Final Signed by: Greg Farias MD Signed (Electronic Signature): 01/24/2023 9:46 am Social History Social History Type Response Smoking Status Smoking tobacco use: Never tobacco user;Never entered on: 01/07/23 Sex MG Breast - bilateral Screening * Greg Farias MD: VERIFY, VERIFY Event Display: Report EXAM DESCRIPTION: MG Mammo Screening Bilateral 01/24/2023 INDICATION: BREAST CANCER SCREENING COMPARISON: Prior studies most recently dated 12/27/2020 and 12/09/2018 BREAST DENSITY: The breasts are heterogeneously dense which may obscure small masses. FINDINGS: MLO and CC views were performed with digital breast tomosynthesis. Images were reviewed using computer aided detection. No asymmetry, architectural distortion or suspicious grouping of calcifications to suggest malignancy in either breast. Stable mild areas of scarring bilaterally consistent with history of prior breast reduction surgery. ASSESSMENT: No mammographic evidence of malignancy. Benign findings. BI-RADS category 2. RECOMMENDATION: Screening mammography in 1 year JOB #: [id number] Final Signed by: Greg Farias MD Signed (Electronic Signature): 01/24/2023 9:46 am Patient Care team information Care Team Personnel Name: Unavailable, Physician Position: No Access Member Role: Primary Care Physician Care Team Related Persons Name: JOE BESSY Address: Home [address] [place], [place] [phone] Address: Mailing [address] [place] [phone] Name: KAYLEE IKM Address: Home [address] [place], [place] [phone] [facility]
[2023-09-15 15:31] LABS: Anion Gap 6.4 mmol/L (3-11); BUN 10 mg/dL (7-18); CO2 27.6 mmol/L (21.0-32.0); CREATININE 0.6 mg/dL (0.55-1.02); Calcium 9.5 mg/dL (8.5-10.1); Chloride 100 mmol/L (98-107); Estimated GFR 111.34 (mL/min/1.73m2); Glucose 90 mg/dL (74-106); Potassium 5.1 mmol/L (3.5-5.1); Sodium 134 mmol/L (136-145); TSH 0.63 uIU/mL (0.36-3.74)
== END 2023-09-15 12:50 | disposition home or self-care (01) ==
LOC: NCHCN 12:49
PROVIDERS: PCP Internal Medicine; Visit Provider Family Medicine
DX: E03.9 Hypothyroidism, unspecified (principal); I10 Essential (primary) hypertension; B07.8 Other viral warts
CPT/HCPCS: 80048; 84443; 88305

== ENCOUNTER 2025-02-01 21:24 | Outpatient (REF) | payer BC, SELFPAY ==
[2025-02-01 21:59] LABS: Anion Gap 7.1 mmol/L (3-11); BUN 19 mg/dL (7-18); CO2 30.9 mmol/L (21.0-32.0); Calcium 9.6 mg/dL (8.5-10.1); Chloride 104 mmol/L (98-107); Estimated GFR 69.06 (mL/min/1.73m2); Glucose 103 mg/dL (74-106); Potassium 4.3 mmol/L (3.5-5.1); Sodium 142 mmol/L (136-145); TSH (W/Ref FT4) 1.17 uIU/mL (0.36-3.74)
== END 2025-02-01 21:25 | disposition home or self-care (01) ==
LOC: NCHCN 21:24
PROVIDERS: PCP Internal Medicine; Visit Provider Family Medicine
DX: E03.9 Hypothyroidism, unspecified (principal); I10 Essential (primary) hypertension
CPT/HCPCS: 80048; 84443